=== PATIENT | male | born 1965 | race Caucasian/White ===

== ENCOUNTER 2020-05-07 09:41 | Emergency (ER) | payer BC ==
--- OUTSIDE RECORDS SUMMARY | 2020-05-07 10:13 | XMS ---
:1965 Author Organization [facility] Care Team Providers Name Role Phone Nathan Hernandez MD Unavailable Unavailable Deven Hernandez MD Unavailable Unavailable Deven Hernandez MD Unavailable Unavailable Deven Hernandez MD Unavailable Unavailable Deven Hernandez MD Unavailable Unavailable Deven Hernandez MD Unavailable Unavailable Deven Hernandez MD Unavailable Unavailable Deven Hernandez MD Unavailable Unavailable Deven Hernandez MD Unavailable Unavailable Deven Hernandez MD Unavailable Unavailable Deven Hernandez MD Unavailable Unavailable Deven Hernandez MD Unavailable Unavailable Deven Hernandez MD Unavailable Unavailable Deven Hernandez MD Unavailable Unavailable Deven Hernandez MD Unavailable Unavailable Deven Hernandez MD Unavailable Unavailable Deven Hernandez MD Unavailable Unavailable Deven Hernandez MD Unavailable Unavailable Deven Hernandez MD Unavailable Unavailable Deven Hernandez MD Unavailable Unavailable Deven Hernandez MD Unavailable Unavailable Deven Hernandez MD Unavailable Unavailable Deven Hernandez MD Unavailable Unavailable Deven Hernandez MD Unavailable Unavailable Cash DC MD Unavailable Unavailable Cash DC MD Unavailable Unavailable Cash DC MD Unavailable Unavailable Cash DC MD Unavailable Unavailable Cash DC MD Unavailable Unavailable Cash DC MD Unavailable Unavailable Cash DC MD Unavailable Unavailable Cash DC MD Unavailable Unavailable Cash DC MD Unavailable Unavailable Cash DC MD Unavailable Unavailable Cash DC MD Unavailable Unavailable Cash DC MD Unavailable Unavailable KRUMHOLTZ, S MD Unavailable Unavailable KRUMHOLTZ, S MD Unavailable Unavailable KRUMHOLTZ, S MD Unavailable Unavailable KRUMHOLTZ, S MD Unavailable Unavailable KRUMHOLTZ, S MD Unavailable Unavailable KRUMHOLTZ, S MD Unavailable Unavailable KRUMHOLTZ, S MD Unavailable Unavailable KRUMHOLTZ, S MD Unavailable Unavailable Re-disclosure Warning The records that you are about to access may contain information from federally- assisted alcohol or drug abuse programs. If such information is present, then the following federally mandated warning applies: This information has been disclosed to you from records protected by federal confidentiality rules (42 CFR part 2). The federal rules prohibit you from making any further disclosure of this information unless further disclosure is expressly permitted by the written consent of the person to whom it pertains or as otherwise permitted by 42 CFR part 2. A general authorization for the release of medical or other information is NOT sufficient for this purpose. The Federal rules restrict any use of the information to criminally investigate or prosecute any alcohol or drug abuse patient.The records that you are about to access may contain highly sensitive health information, the redisclosure of which is protected by Article 27-F of the [facility] Public Health law. If you continue you may haveaccess to information: Regarding HIV / AIDS; Provided by facilities licensed or operated by the [facility] Office of Mental Health; or Provided by the [facility] Office for People With Developmental Disabilities. If such information is present, then the following [facility] mandated warning applies: This information has been disclosed to you from confidential records which are protected by state law. State law prohibits you from making any further disclosure of this information without the specific written consent of the person to whom it pertains, or as otherwise permitted by law. Any unauthorized further disclosure in violation of state law may result in a fine or alf sentence or both. A general authorization for the release of medical or other information is NOT sufficient authorization for further disclosure. Allergies and Adverse Reactions Type Description Substance Reaction Status Data Source(s ) Drug allergy Drug allergy Drug allergy MEDENT ( [facility]) Family History Family Member Family Member Family Member Date of Description Data Source(s) Name Gender Status Status Unknown Unknown Problem [facility] Encounters Encounter Providers Location Date Indications Data Source(s ) Outpatient Attender: [facility] 04/01/2020 MEDENT (Elgin Hernandez MD Internal 04:00:00 PM Medical Group of Medicine EDT [facility]) Outpatient Attender: [facility] 03/04/2020 MEDENT (Elgin Hernandez MD Internal 09:15:00 AM Medical Group of Medicine EDT [facility]) Outpatient Attender: [facility] LO-DANICA 01/20/2020 Bruce Hernandez 02:18:14 PM Holland mora MDAdmitter: [facility] David CROWELL 01/20/2020 11:59:00 PM EDT Patient discharged. Outpatient Attender: [facility] 01/12/2020 01:00:00 MEDENT ([facility] David CROWELL Internal Medicine PM EDT [facility]) Outpatient Attender: [facility] 09/11/2019 03:30:00 MEDENT ([facility] David CROWELL Internal Medicine PM EST [facility]) Outpatient Attender: [facility] 12/12/2018 04:15:00 MEDENT ([facility] David CROWELL Internal Medicine PM EDT [facility]) Outpatient Attender: [facility] 03/14/2018 04:30:00 MEDENT ([facility] David CROWELL Internal Medicine PM EDT [facility]) Outpatient Attender: [facility] 08/03/2017 03:00:00 MEDENT ([facility] David CROWELL Internal Medicine PM EST [facility]) Outpatient Attender: [facility] 01/18/2017 03:45:00 MEDENT ([facility] David CROWELL Internal Medicine PM EDT [facility]) Outpatient Attender: [facility] 09/02/2015 03:15:00 MEDENT ([facility] David CROWELL Internal Medicine PM EST [facility]) Outpatient Attender: [facility] 06/04/2014 02:30:00 MEDENT ([facility] David CROWELL Internal Medicine PM EST [facility]) Outpatient Attender: [facility] 04/10/2013 04:15:00 MEDENT ([facility] David CROWELL Internal Medicine PM EDT [facility]) Outpatient Attender: [facility] 11/09/2011 04:15:00 MEDENT ([facility] David CROWELL Internal Medicine PM EDT [facility]) Outpatient Attender: [facility] 09/18/2011 12:30:00 MEDENT ([facility] David CROWELL Internal Medicine PM EST [facility]) Outpatient Attender: [facility] 10/13/2010 04:30:00 MEDENT ([facility] David CROWELL Internal Medicine PM EDT [facility]) Outpatient Attender: [facility] 01/20/2010 04:30:00 MEDENT ([facility] David CROWELL Internal Medicine PM EDT [facility]) Outpatient Attender: [facility] 04/01/2006 03:20:00 MEDENT ([facility] VANDA CROWELL Internal Medicine PM EDT [facility]) Outpatient Attender: [facility] 04/01/2006 03:00:00 MEDENT ([facility] VANDA CROWELL Internal Medicine PM EDT [facility]) Outpatient Attender: [facility] 03/04/2006 09:10:00 MEDENT ([facility] VANDA CROWELL Internal Medicine AM EDT [facility]) Outpatient Attender: [facility] 02/04/2006 09:00:00 MEDENT ([facility] VANDA CROWELL Internal Medicine AM EDT [facility]) Outpatient Attender: [facility] 01/29/2006 01:20:00 MEDENT ([facility] VANDA CROWELL Internal Medicine PM EDT [facility]) Outpatient Attender: [facility] 01/22/2006 03:50:00 MEDENT ([facility] VANDA CROWELL Internal Medicine PM EDT [facility]) Medications Medication Brand Start Product Dose Route Administrative Pharmacy [facility] Indications Reaction Description Data Name Date Form Instructions Instructions Source(s) mesalamine Mesala 04/01/ ORAL active MED ENT 1200 MG mine 2019 ([facility] Delayed 12:00: Medical Release 00 AM Group of Oral Tablet EDT the [facility]) Omeprazole Omepra 03/04/ ORAL active MED ENT 40 MG zole 2019 ([facility] Delayed 12:00: Medical Release 00 AM Group of Oral EDT the [place]) POLYETHYLEN Trilyt 10/04/ complet M EDENT E GLYCOL e 2019 ed ([facility] [id number] 12:00: Medical MG/ML / 00 AM Group of Potassium EST the [place]) 0.48797 MEQ/ML / Sodium Bicarbonate 0.017 MEQ/ML / Sodium Chloride 0.0479 MEQ/ML Oral Solution [TriLyte] Budesonide Entoco 11/23/ ORAL complet ME DENT 3 MG rt Ec 2019 ed ([facility] Delayed 12:00: Medical Release 00 AM Group of Oral EDT the [place]) [Entocort] Budesonide Entoco 01/10/ ORAL complet ME DENT 3 MG rt Ec 2018 ed ([facility] Delayed 12:00: Medical Release 00 AM Group of Oral EDT the [place]) [Entocort] Budesonide Budeso 08/03/ ORAL complet ME DENT 3 MG nide 2018 ed ([facility] Delayed 12:00: Medical Release 00 AM Group of Oral EST the [place]) Budesonide Budeso 05/11/ ORAL complet ME DENT 3 MG nide 2016 ed ([facility] Delayed 12:00: Medical Release 00 AM Group of Oral EDT the [place]) POLYETHYLEN Trilyt 04/30/ complet M EDENT E GLYCOL e 2016 ed ([facility] [id number] 105 12:00: Medical MG/ML / 00 AM Group of Potassium EDT the [place]) 0.74736 MEQ/ML / Sodium Bicarbonate 0.017 MEQ/ML / Sodium Chloride 0.0479 MEQ/ML Oral Solution [TriLyte] Prednisone Predni 04/26/ complet ME DENT 10 MG Oral sone 2016 ed ([facility] Tablet 12:00: Medical 00 AM Group of EDT the [place]) mesalamine Lialda 01/18/ ORAL active MED ENT 1200 MG 2016 ([facility] Delayed 12:00: Medical Release 00 AM Group of Oral Tablet EDT the [place]) mesalamine Lialda 09/02/ ORAL complet ME DENT 1200 MG 2015 ed ([facility] Delayed 12:00: Medical Release 00 AM Group of Oral Tablet EST the [place]) mesalamine Delzic 06/04/ complet ME DENT 400 MG ol 2013 ed ([facility] Delayed 12:00: Medical Release 00 AM Group of Oral EST the [facility]) [Delzicol] mesalamine Asacol 05/26/ ORAL complet ME DENT 800 MG HD 2012 ed ([facility] Delayed 12:00: Medical Release 00 AM Group of Oral Tablet EDT the [facility] on [Asacol] [place]) mesalamine Asacol 12/20/ ORAL complet ME DENT 800 MG HD 2012 ed ([facility] Delayed 12:00: Medical Release 00 AM Group of Oral Tablet EDT the [facility] [Asacol] [place]) mesalamine Delzic 11/17/ complet ME DENT 400 MG ol 2012 ed ([facility] Delayed 12:00: Medical Release 00 AM Group of Oral EDT the [facility]) [Delzicol] mesalamine Asacol 10/13/ complet ME DENT 400 MG 2010 ed ([facility] Delayed 12:00: Medical Release 00 AM Group of Oral Tablet EDT the [facility] [Asacol] [place]) Triple Flex complet MEDEN T ed ([facility]) Vit D complet MEDENT ed ([facility]) Fish Oil complet MEDENT ed ([facility]) Turmeric active MEDENT ([facility]) Vit D complet MEDENT ed ([facility]) Vit B-12 active MEDENT ([facility]) Vit C complet MEDENT ed ([facility]) Esomeprazol Nexium ORAL active MEDE NT e 40 MG ([facility] Delayed Medical Release Group of Oral the [facility]) [Nexium] MTV active MEDENT ([facility]) Vitamin C active MEDENT ([facility]) Cholecalcif Vitami ORAL active MEDE NT hannah 1000 n D ([facility] UNT Oral Medical Tablet Group [facility]) Insurance Providers Payer name Policy type / Policy ID Covered Covered republican's Policy Plan Coverage type republican ID relationship to Lujan Information lujan BC OUT OF [id number] S [id number] [facility] BC/BS Medigap Part [id number] Self [id number] B Ghi Ppo Commercial [id number] Self [id number] [place] Commercial [id number] Self [id number] [employer] [place] BC/BS Medigap Part [id number] Self S [id number] B [place] BC/BS Medigap Part [id number] Self [id number] B Ghi Ppo Commercial [id number] Self [id number] [place] Commercial [id number] Self [id number] [employer] COMM [id number] Self [id number] [place] [employer]/[place] Medigap Part [id number] Self [id number] B Ghi Ppo Commercial [id number] Self [id number] [place] Commercial [id number] Self [id number] [employer] [place] BC/BS Medigap Part [id number] Self [id number] B Ghi Ppo Commercial [id number] Self [id number] [place] Commercial [id number] Self [id number] [employer] [place] BC/BS Medigap Part [id number] Self [id number] B Ghi Ppo Commercial [id number] Self [id number] [place] Commercial [id number] Self [id number] [employer] [place] [employer]/BS Medigap Part [id number] Self [id number] B Ghi Ppo Commercial [id number] Self [id number] [employer] Commercial [id number] Self [id number] [employer] [place] BC/BS Medigap Part [id number] Self [id number] B Ghi Ppo Commercial [id number] Self [id number] [place] [employer] [id number] Self [id number] [employer] [place] BC/BS Medigap Part [id number] Self [id number] B Ghi Ppo Commercial [id number] Self [id number] 66 [employer] [id number] Self [id number] [employer] [place] BC/BS Medigap Part [id number] Self [id number] B Ghi Ppo Commercial [id number] Self [id number] [employer] Commercial [id number] Self [id number] [employer] [place] BC/BS Medigap Part [id number] Self [id number] B Ghi Ppo Commercial [id number] Self [id number] [place] [employer] [id number] Self [id number] [employer] [place] BC/BS Medigap Part [id number] Self [id number] B Ghi Ppo Commercial [id number] Self [id number] [place] [id number] Self [id number] [employer] Problems, Conditions, and Diagnoses Code Display Name Description Problem Type Effective Data Sour ce(s) Dates [id number] Crohn's disease Crohn's disease Problem 03/14/2018 MEDE NT 12:00:00 AM ([facility] EDT [facility]) [id number] Diarrhea Diarrhea Problem 08/03/2017 MEDENT 12:00:00 AM ([facility] EST [facility]) [id number] Crohn's disease of Crohn's disease Problem 11/09/2011 M EDENT small intestine of small 12:00:00 AM ([facility] intestine EDT [facility]) [id number] Crohn's disease of Crohn's disease Problem 09/18/2011 M EDENT large bowel of large bowel 12:00:00 AM ([facility] EST [facility]) Z20.828 Contact with and Contact with and Diagnosis 01/20/2020 [facility] (suspected) (suspected) 02:18:00 PM - Holland exposure to other exposure to other EDT [facility] viral communicable viral [facility] diseases communicable diseases Surgeries/Procedures Procedure Description Date Indications Data Source(s) GI IMAG INTRALUMIN 02/19/2020 MEDENT (P remier ESOPH-ILEUM PHYS INTERP/RPT 12:00:00 AM EDT [facility]) Anesthesia For Upper 01/23/2020 MEDENT ([facility] Gastrointestinal Endoscopic 12:00:00 AM EDT Medical Group of Procedure the [facility]) UPPER NDSC BIOPSY 01/23/2020 MEDENT (Pr emier SINGLE/MULTIPLE 12:00:00 AM EDT Medical G roup of the [facility]) Colonoscopy (procedure) 10/10/2019 MEDE NT ([facility] 12:00:00 AM EDT [facility]) Anesthesia For Lower 10/10/2019 MEDENT ([facility] Intestinal Endoscopic 12:00:00 AM EDT Med ical Group of Procedures the [facility]) COLONOSCOPY W/BIOPSY 10/10/2019 MEDENT ([facility] SINGLE/MULTIPLE 12:00:00 AM EDT Medical G roup of the [facility]) NONINVASIVE EAR/PULSE 09/11/2019 MEDENT ([facility] OXIMETRY SINGLE DETER 12:00:00 AM EST Med ical Group [facility]) Anesthesia For Upper 02/28/2019 MEDENT ([facility] Gastrointestinal Endoscopic 12:00:00 AM EDT Medical Group of Procedure the [facility]) UPPER NDSC BIOPSY 02/28/2019 MEDENT (Pr emier SINGLE/MULTIPLE 12:00:00 AM EDT Medical G roup of the [facility]) NONINVASIVE EAR/PULSE 12/12/2018 MEDENT ([facility] OXIMETRY SINGLE DETER 12:00:00 AM EDT Med ical Group of [facility]) ANES UPPER GI ENDOSCOPY 05/11/2017 MEDE NT ([facility] PROXIMAL TO DUODENUM 12:00:00 AM EDT Medi everette Group of the [facility]) ENDOSCOPY UPPER SMALL 05/11/2017 MEDENT ([facility] INTESTINE W/BIOPSY 12:00:00 AM EDT Medica l Group of [facility]) ANES LOWER INTESTINE 05/04/2017 MEDENT ([facility] ENDOSCOPY DISTAL DUODENUM 12:00:00 AM EDT [facility]) COLONOSCOPY W/BIOPSY 05/04/2017 MEDENT ([facility] SINGLE/MULTIPLE 12:00:00 AM EDT Medical G roup of [facility]) Colonoscopy (procedure) 05/04/2017 MEDE NT ([facility] 12:00:00 AM EDT Medical Grou p [facility]) ANES LOWER INTESTINE 10/15/2015 MEDENT ([facility] ENDOSCOPY DISTAL DUODENUM 12:00:00 AM EDT [facility]) COLONOSCOPY W/BIOPSY 10/15/2015 MEDENT ([facility] SINGLE/MULTIPLE 12:00:00 AM EDT Medical G roup of the [facility]) ANES LOWER INTESTINE 10/24/2013 MEDENT ([facility] ENDOSCOPY DISTAL DUODENUM 12:00:00 AM EDT [facility]) COLONOSCOPY W/BIOPSY 10/24/2013 MEDENT ([facility] SINGLE/MULTIPLE 12:00:00 AM EDT Medical G roup of [facility]) COLONOSCOPY W/BIOPSY 05/26/2010 MEDENT ([facility] SINGLE/MULTIPLE 12:00:00 AM EDT Medical G roup of [facility]) CT PELVIS W/O CONTRAST 04/01/2006 MEDEN T ([facility] MATERIAL 12:00:00 AM EDT Medical Grou p of [facility]) CT ABDOMEN W/O CONTRAST 04/01/2006 MEDE NT ([facility] MATERIAL 12:00:00 AM EDT Medical Grou p [facility]) NJX C/P/A CAVERNOSA 02/04/2006 MEDENT ( [facility] W/PHARMACOLOGIC AGT 12:00:00 AM EDT Medic al Group [facility]) DUP-SCAN ARTL INFL&VISHAL O/F 02/04/2006 M EDENT ([facility] PEN VSL COMPL 12:00:00 AM EDT Medical Matteo up of [facility]) CT PELVIS W/O CONTRAST 01/29/2006 MEDEN T ([facility] MATERIAL 12:00:00 AM EDT Medical Grou p of [facility]) CT ABDOMEN W/O CONTRAST 01/29/2006 MEDE NT ([facility] MATERIAL 12:00:00 AM EDT Medical Grou p [facility]) Results ID Date Data Source [id number] 01/23/2020 12:39:00 PM EDT [facility]) Name Value Range Interpretation Description Data Sup porting Code Source(s) Document(s ) Laboratory Laboratory MEDENT test finding test result ([facility]) [facility]) ID Date Data Source [id number] 01/20/2020 02:21:00 PM EDT [facility] Name Value Range Interpretation Description Data Sup porting Code Source(s) Document(s ) SARS CoV-2 [facility] Interpretation This lab was ordered by Holland Vazquez and reported by [employer] | [employer]. ID Date Data Source [id number] 01/20/2020 02:21:00 PM EDT [facility] Name Value Range Interpretation Code Description Data Marion rce(s) Supporting Document(s ) 2019-nCoV [facility] RNA XXX GENNY+probe- Imp This lab was ordered by [facility] and [facility]. ID Date Data Source [id number] 01/21/2020 02:28:00 PM EDT [facility] Name Value Range Interpretation Code Description Data Marion rce(s) Supporting Document(s ) COVID-19 NA [facility] SARS CoV-2 RNA NEGATIVE (NOT DETECTED)Ne gative results do not preclude SARS-CoV-2 infection and should notbe used as the s ole basis for patient management decisions. Negativeresults must be combined with cl inical observations, patient history,and epidemiological information. Optimum spe cimen types and timingfor peak viral levels during infections caused by SARS-CoV-2 h ave notbeen determined. Collection of multiple specimens or types ofspecimens may be necessary to detect virus. Improper specimencollection and handling, sequenc e variability under primers/probes,or organism present below the limit of dete ction may lead to falsenegative results. Positive and negative predictive values oftesting are highly dependent on prevalence. False negative testresults are more like ly when prevalence is high.The expected result is Negative (Not Detected).The SA RS-CoV-2 test is intended for the qualitative detection ofnucleic acid from SARS-CoV-2 in nasopharyngeal and oropharyngealswab samples from patients who meet COVID-19 clinical and/orepidemiological criteria. For lower respiratory tract specimens,the as say is submitted for authorization by FDA under an EmergencyUse Authorization (EUA ). Testing methodology is Real-Time PCR (RT-PCR)using high-throughput technology . If received as separate collectiondevices, nasopharyngeal and oropharyngeal specime ns are combined foranalysis.Test results must be correlated with clinical presentation andevaluated in the context of other laboratory ad epidemiologic data.This te st has not been Food and Drug Administration (FDA) cleared orapproved and has been au thorized by FDA under an Emergency UseAuthorization (EUA).[facility] is certified under the ClinicalLaboratory Improvement Amendment s of 1988 (CLIA), 42 U.S.C. [id number], to perform high complexity tests.Performing Lab : [address] [id number] Directo r:Dr. Ed Byrd Lab IA Number:[id number] ID Date Data Source [id number] 10/10/2019 07:53:00 AM EDT [facility] ([facility]) Name Value Range Interpretation Description Data Sup porting Code Source(s) Document(s ) Laboratory Laboratory MEDENT test finding test result ([facility]) ID Date Data Source [id number] 02/28/2019 08:26:00 AM EDT MED[facility] ([facility]) Name Value Range Interpretation Description Data Sup porting Code Source(s) Document(s ) Laboratory Laboratory MEDENT test finding test result ([facility]) ID Date Data Source [id number] 05/13/2017 03:10:00 PM EDT [facility] ([facility]) Name Value Range Interpretation Description Data Sup porting Code Source(s) Document(s ) Clostridium Laboratory Normal (applies MEDENT difficile test result to non-numeric ([facility] toxin A+B results) Medical [Presence] in Group of Stool by the [facility]) SRC:ST SRC:ST Hemoglobin.gastrointestinal Laboratory test Abnormal (applie s MEDENT [Presence] in Stool by result to non-numeric (P remier Immunologic method results) [facility]) SRC:ST SRC:ST Calprotectin [Mass/mass] 59 ug/g 0-120 Normal (applies to MEDENT ([facility] in Stool non-numeric results) Medical [facility]) SRC:ST SRC:ST ID Date Data Source [id number] 05/13/2017 03:10:00 PM EDT [facility] ([facility]) Name Value Range Interpretation Description Data Sup porting Code Source(s) Document(s ) Salmonella Laboratory Normal (applies MEDENT sp/Shigella test result to non-numeric (Premier sp identified results) Medical in Stool by Group of Organism the [facility]) culture SRC:ST SRC:ST Campylobacter sp Laboratory test Normal (applies to MEDENT (Premier identified in Stool by result non-numeric results) Medical Group of Organism specific the [facility]) SRC:ST SRC:ST Escherichia coli Laboratory test Normal (applies to MEDENT (Premier shiga-like [Presence] result non-numeric results) Medical Group of in Stool by the [facility]) SRC:ST SRC:ST Bacteria identified Laboratory test Normal (applies to MEDENT (Premier in Unspecified result non-numeric results) [facility] [place] Group of specimen by Culture the [facility]) SRC:ST SRC:ST Bacteria identified Laboratory test Normal (applies to MEDENT (Premier in Unspecified result non-numeric results) [facility] Group of specimen by Culture [facility]) SRC:ST SRC:ST ID Date Data Source [id number] 05/11/2017 08:23:00 AM EDT MEDENT (Premi er Medical Group of [facility]) Name Value Range Interpretation Description Data Sup porting Code Source(s) Document(s ) Laboratory Laboratory Normal (applies MEDENT test finding test result to non-numeric (Premier (navigational results) Medical concept) Group of the [facility]) ID Date Data Source [id number] 05/11/2017 03:00:00 AM EDT [facility]) Name Value Range Interpretation Description Data Sup porting Code Source(s) Document(s ) Leukocytes Laboratory Abnormal (applies MEDENT [Presence] in test result to non-numeric (Premier Stool by results) Medical Light Group of microscopy [facility]) Source of Specimen: ST CD- [id number] Leukocytes Laboratory test Abnormal (applies to ME DENT (Premier [Presence] in Stool result non-numeric results) Medical Group of by Light microscopy [facility]) Source of Specimen: ST CD- [id number] Moderate amount of white blood cells. ID Date Data Source [id number] 05/11/2017 03:00:00 AM EDT MEDENT (Premi er [facility]) Name Value Range Interpretation Description Data Sup porting Code Source(s) Document(s ) Calprotectin 80 ug/g 0-120 Normal (applies MEDENT [Mass/mass] in to non-numeric (Premier Stool results) Medical Group of [facility]) <content>Concentration Interpretatio n Follow-Up</content>
<content><16 - 50 ug/g Normal None</content>
<content>>50 -120 ug/g Borderline Re-evaluate in 4-6 weeks</content>
<content>>120 ug/g Abnormal Repeat as clinically</content>
<content>indica rachid</content>
<content></content> ID Date Data Source [id number] 05/11/2017 03:00:00 AM EDT [facility]) Name Value Range Interpretation Description Data Sup porting Code Source(s) Document(s ) Salmonella Laboratory Normal (applies MEDENT sp/Shigella test result to non-numeric (Premier sp identified results) Medical in Stool by Group of Organism the [facility]) culture Source of Specimen: ST CD- [id number] Escherichia coli Laboratory test Normal (applies to MEDENT (Premier shiga-like [Presence] result non-numeric results) Medical Group of in Stool by the [facility]) Source of Specimen: ST CD- [id number] 24 Campylobacter sp Laboratory test Normal (applies to MEDENT (Premier identified in Stool by result non-numeric results) Medical Group of Organism specific the [facility]) Source of Specimen: ST CD- [id number] 24 Bacteria identified Laboratory test Normal (applies to MEDENT (Premier in Unspecified result non-numeric results) [facility] Group of specimen by Culture [facility]) Source of Specimen: ST CD- [id number] No Campylobacter species isolated. Bacteria identified Laboratory test Normal (applies to MEDENT (Premier in Unspecified result non-numeric results) [facility] Group of specimen by Culture the [facility]) Source of Specimen: ST CD- [id number] No Salmonella or Shigella recovered. ID Date Data Source [id number] 05/04/2017 11:13:00 AM EDT [facility]) Name Value Range Interpretation Description Data Sup porting Code Source(s) Document(s ) Endomysium IgA Ab Laboratory Normal (applies MEDEN T [Presence] in test result to non-numeric (Premier Serum results) Medical Group of [facility]) Laboratory test 350 mg/dL 90-386 Normal (applies MEDENT finding to non-numeric (Premier (navigational results) Medical concept) Group of [facility]) Tissue 2 U/mL 0-3 Normal (applies MEDENT transglutaminase to non-numeric (Premier IgA Ab results) Medical [Units/volume] in Group of Serum [facility]) Negative 0 - 3 Weak Positive 4 - 10 Positive >10 Tissue Transglutaminase (tTG) has been i dentified as the endomysial antigen. Studies have demonstr- ated that endomysial IgA antibodies have over 99% specificity for gluten sensitive enterop athy. ID Date Data Source [id number] 05/04/2017 11:13:00 AM EDT MEDENT ([facility]i er [facility]) Name Value Range Interpretation Description Data Sup porting Code Source(s) Document(s ) Leukocytes 5.2 x10E3/uL 3.4-10. Normal (applies MEDENT [#/volume] in 8 to non-numeric (Premier Blood by results) Medical Automated count Group of [facility]) Erythrocytes 4.71 4.14-5. Normal (applies MEDENT [#/volume] in x10E6/uL 80 to non-numeric (Premier Blood by results) Medical Automated count Group of [facility]) Hematocrit 41.3 % 37.5-51 Normal (applies MEDENT [Volume .0 to non-numeric (Premier Fraction] of results) Medical Blood by Group of Automated count [facility]) Hemoglobin 14.0 g/dL 12.6-17 Normal (applies MEDENT [Mass/volume] .7 to non-numeric (Premier in Blood results) Medical Group of the [facility]) Erythrocyte 88 fL 79-97 Normal (applies MEDENT mean to non-numeric (Premier corpuscular results) Medical volume [Entitic Group of volume] by the [place] Automated count [place]) Erythrocyte 14.2 % 12.3-15 Normal (applies MEDENT distribution .4 to non-numeric (Premier width [Ratio] results) Medical by Automated Group of count [facility]) Erythrocyte 33.9 g/dL 31.5-35 Normal (applies MEDENT mean .7 to non-numeric (Premier corpuscular results) Medical hemoglobin Group of concentration [facility] [Mass/volume] [place]) by Automated count Erythrocyte 29.7 pg 26.6-33 Normal (applies MEDENT mean .0 to non-numeric (Premier corpuscular results) Medical hemoglobin Group of [Entitic mass] [facility] by Automated [place]) count Monocytes/100 10 % Normal (applies MEDENT leukocytes in to non-numeric (Premier Blood by results) Medical Automated count Group [facility]) Neutrophils/100 49 % Normal (applies MEDENT leukocytes in to non-numeric (Premier Blood by results) Medical Automated count Group [facility]) Platelets 271 x10E3/uL 150-379 Normal (applies MEDENT [#/volume] in to non-numeric (Premier Blood by results) Medical Automated count Group [facility]) Lymphocytes/100 38 % Normal (applies MEDENT leukocytes in to non-numeric (Premier Blood by results) Medical Automated count Group [facility]) Basophils/100 0 % Normal (applies MEDENT leukocytes in to non-numeric (Premier Blood by results) Medical Automated count Group [facility]) Neutrophils 2.6 x10E3/uL 1.4-7.0 Normal (applies MEDENT [#/volume] in to non-numeric (Premier Blood by results) Medical Automated count Group [facility]) Immature cells Laboratory Normal (applies MEDENT [#/volume] in test result to non-numeric (Premier Blood results) Medical Group [facility]) Eosinophils/100 3 % Normal (applies MEDENT leukocytes in to non-numeric (Premier Blood by results) Medical Automated count Group [facility]) Eosinophils 0.1 x10E3/uL 0.0-0.4 Normal (applies MEDENT [#/volume] in to non-numeric (Premier Blood by results) Medical Automated count Group [facility]) Lymphocytes 2.0 x10E3/uL 0.7-3.1 Normal (applies MEDENT [#/volume] in to non-numeric (Premier Blood results) Medical Group [facility]) Monocytes 0.5 x10E3/uL 0.1-0.9 Normal (applies MEDENT [#/volume] in to non-numeric (Premier Blood results) Medical Group [facility]) Immature 0.0 x10E3/uL 0.0-0.1 Normal (applies MEDENT granulocytes to non-numeric (Premier [#/volume] in results) Medical Blood by Group of Automated count [facility]) Basophils 0.0 x10E3/uL 0.0-0.2 Normal (applies MEDENT [#/volume] in to non-numeric (Premier Blood by results) Medical Automated count Group [facility]) Immature 0 % Normal (applies MEDENT granulocytes/10 to non-numeric (Premier 0 leukocytes in results) Medical Blood by Group of Automated count [facility]) Nucleated Laboratory Normal (applies MEDENT erythrocytes/10 test result to non-numeric (Premie r 0 leukocytes results) Medical [Ratio] in Group of Blood by the [place] [facility] [place]) Morphology Laboratory Normal (applies MEDENT [Interpretation test result to non-numeric (Premie r ] in Blood results) Medical Narrative Group [facility]) ID Date Data Source [id number] 05/04/2017 11:13:00 AM EDT MEDENT (Premi er Medical Group [facility]) Name Value Range Interpretation Description Data Sup porting Code Source(s) Document(s ) Glucose 108 65-99 Above high MEDENT [Mass/volume] in mg/dL normal (Premier Serum or Plasma Medical Group [facility]) Creatinine 0.94 0.76-1. Normal (applies MEDENT [Mass/volume] in mg/dL 27 to non-numeric (Premier Serum or Plasma results) Medical Group [facility]) Urea nitrogen 10 6-24 Normal (applies MEDENT [Mass/volume] in mg/dL to non-numeric (Premier Serum or Plasma results) Medical Group [facility]) eGFR If Africn Am 110 Normal (applies MEDENT mL/min/ to non-numeric (Premier 1.73 results) Medical Group [facility]) eGFR If NonAfricn 95 Normal (applies MEDENT Am mL/min/ to non-numeric (Premier 1.73 results) Medical Group [facility]) Potassium 4.0 3.5-5.2 Normal (applies MEDENT [Moles/volume] in mmol/L to non-numeric (Premie r Serum or Plasma results) Medical Group [facility]) Sodium 141 134-144 Normal (applies MEDENT [Moles/volume] in mmol/L to non-numeric (Premie r Serum or Plasma results) Medical Group of [facility]) Urea 11 9-20 Normal (applies MEDENT nitrogen/Creatinine to non-numeric (Nba ier [Mass Ratio] in results) Medical Serum or Plasma Group of [facility]) Chloride 102 96-106 Normal (applies MEDENT [Moles/volume] in mmol/L to non-numeric (Premie r Serum or Plasma results) Medical Group of [facility]) Carbon dioxide, 26 18-29 Normal (applies MEDENT total mmol/L to non-numeric (Premier [Moles/volume] in results) Medical Serum or Plasma Group of the [facility]) Protein 6.8 6.0-8.5 Normal (applies MEDENT [Mass/volume] in g/dL to non-numeric (Premier Serum or Plasma results) Medical Group of [facility]) Calcium 9.2 8.7-10. Normal (applies MEDENT [Mass/volume] in mg/dL 2 to non-numeric (Premier Serum or Plasma results) Medical Group of [facility]) Albumin/Globulin 1.3 1.2-2.2 Normal (applies MEDENT [Mass Ratio] in to non-numeric (Premier Serum or Plasma results) Medical Group of [facility]) Globulin 2.9 1.5-4.5 Normal (applies MEDENT [Mass/volume] in g/dL to non-numeric (Premier Serum by results) Medical calculation Group of [facility]) Albumin 3.9 3.5-5.5 Normal (applies MEDENT [Mass/volume] in g/dL to non-numeric (Premier Serum or Plasma results) Medical Group of [facility]) Alkaline 75 IU/L 39-117 Normal (applies MEDENT phosphatase to non-numeric (Premier [Enzymatic results) Medical activity/volume] in Group of Serum or Plasma [facility]) Aspartate 19 IU/L 0-40 Normal (applies MEDENT aminotransferase to non-numeric (Premier [Enzymatic results) Medical activity/volume] in Group of Serum or Plasma [facility]) Alanine 26 IU/L 0-44 Normal (applies MEDENT aminotransferase to non-numeric (Premier [Enzymatic results) Medical activity/volume] in Group of Serum or Plasma [facility]) Bilirubin.total 0.5 0.0-1.2 Normal (applies MEDENT [Mass/volume] in mg/dL to non-numeric (Premier Serum or Plasma results) Medical Group [facility]) ID Date Data Source [id number] 05/04/2017 11:13:00 AM EDT MEDENT (Premi er Medical Group [facility]) Name Value Range Interpretation Description Data Sup porting Code Source(s) Document(s ) Erythrocyte 2 mm/hr 0-15 Normal (applies MEDENT sedimentation to non-numeric (Premier rate by results) Medical [place] Group of method the [facility]) C reactive Laboratory 0.0-4.9 Normal (applies MEDENT protein test result to non-numeric (Premier [Mass/volume] results) Medical in Serum or Group of Plasma [facility]) ID Date Data Source [id number] 05/04/2017 09:05:00 AM EDT MEDENT (Premi er [facility] Group [facility]) Name Value Range Interpretation Description Data Sup porting Code Source(s) Document(s ) Albumin Laboratory Normal (applies MEDENT [Mass/volume] in test result to non-numeric (Premi er Serum or Plasma results) Medical Group [facility]) Carbon dioxide, Laboratory Normal (applies MEDENT total test result to non-numeric (Premier [Moles/volume] in results) Medical Serum or Plasma Group [facility]) Aspartate Laboratory Normal (applies MEDENT aminotransferase test result to non-numeric (Premi er [Enzymatic results) Medical activity/volume] Group of in Serum or Plasma [facility]) Calcium Laboratory Normal (applies MEDENT [Mass/volume] in test result to non-numeric (Premi er Serum or Plasma results) Medical Group [facility]) Alanine Laboratory Normal (applies MEDENT aminotransferase test result to non-numeric (Premi er [Enzymatic results) Medical activity/volume] Group of in Serum or Plasma [facility]) Chloride Laboratory Normal (applies MEDENT [Moles/volume] in test result to non-numeric (Nba ier Serum or Plasma results) Medical Group [facility]) Creatinine Laboratory Normal (applies MEDENT [Mass/volume] in test result to non-numeric (Premi er Serum or Plasma results) Medical Group [facility]) Glucose Laboratory Normal (applies MEDENT [Mass/volume] in test result to non-numeric (Premi er Serum or Plasma results) Medical Group of the [facility]) Laboratory test Laboratory Normal (applies MEDENT finding test result to non-numeric (Premier (navigational results) Medical concept) Group of the [facility]) Protein Laboratory Normal (applies MEDENT [Mass/volume] in test result to non-numeric (Premi er Serum or Plasma results) Medical Group of [facility]) Potassium Laboratory Normal (applies MEDENT [Moles/volume] in test result to non-numeric (Nba ier Serum or Plasma results) Medical Group of [facility]) Sodium Laboratory Normal (applies MEDENT [Moles/volume] in test result to non-numeric (Nba ier Serum or Plasma results) Medical Group of [facility]) Laboratory test Laboratory Normal (applies MEDENT finding test result to non-numeric (Premier (navigational results) Medical concept) Group of [facility]) Laboratory test Laboratory Normal (applies MEDENT finding test result to non-numeric (Premier (navigational results) Medical concept) Group of the [facility]) ID Date Data Source [id number] 05/04/2017 09:05:00 AM EDT MEDENT (Premi er Medical Group [facility]) Name Value Range Interpretation Description Data Sup porting Code Source(s) Document(s ) C reactive Laboratory Normal (applies MEDENT protein test result to non-numeric (Premier [Mass/volum results) Medical e] in Serum Group of the or Plasma [facility]) ID Date Data Source [id number] 05/04/2017 09:05:00 AM EDT MEDENT (Premi er Medical Group [facility]) Name Value Range Interpretation Description Data Sup porting Code Source(s) Document(s ) Erythrocyte Laboratory Normal (applies MEDENT mean test result to non-numeric (Premier corpuscular results) Medical volume [Entitic Group of volume] by the [place] Autom[facility] [place]) Hematocrit Laboratory Normal (applies MEDENT [Volume test result to non-numeric (Premier Fraction] of results) Medical Blood by Group of Automated count [facility]) Erythrocyte Laboratory Normal (applies MEDENT mean test result to non-numeric (Premier corpuscular results) Medical hemoglobin Group of [Entitic mass] the [place] by Automated [place]) count Hemoglobin Laboratory Normal (applies MEDENT [Mass/volume] test result to non-numeric (Premier in Blood results) Medical Group of [facility]) Platelets Laboratory Normal (applies MEDENT [#/volume] in test result to non-numeric (Premier Blood by results) Medical Automated count Group [facility]) Erythrocyte Laboratory Normal (applies MEDENT distribution test result to non-numeric (Premier width [Ratio] results) Medical by Automated Group of count [facility]) Erythrocyte Laboratory Normal (applies MEDENT mean test result to non-numeric (Premier corpuscular results) Medical hemoglobin Group of concentration [facility] [Mass/volume] [place]) by Automated count Platelet mean Laboratory Normal (applies MEDENT volume [Entitic test result to non-numeric (Premie r volume] in results) Medical Blood by Group of [place] [facility]) Band form Laboratory Normal (applies MEDENT neutrophils/100 test result to non-numeric (Premie r leukocytes in results) Medical Body fluid by Group of Manual count [facility]) Lymphocytes/100 Laboratory Normal (applies MEDENT leukocytes in test result to non-numeric (Premier Body fluid by results) Medical Manual count Group [facility]) Laboratory test Laboratory Normal (applies MEDENT finding test result to non-numeric (Premier (navigational results) Medical concept) Group of [facility]) Basophils/100 Laboratory Normal (applies MEDENT leukocytes in test result to non-numeric (Premier Blood results) Medical Group [facility]) Eosinophils/100 Laboratory Normal (applies MEDENT leukocytes in test result to non-numeric (Premier Body fluid by results) Medical Manual count Group [facility]) Laboratory test Laboratory Normal (applies MEDENT finding test result to non-numeric (Premier (navigational results) Medical concept) Group of [facility]) Monocytes Laboratory Normal (applies MEDENT [#/volume] in test result to non-numeric (Premier Blood results) Medical Group of [facility]) Lymphocytes Laboratory Normal (applies MEDENT [#/volume] in test result to non-numeric (Premier Blood results) Medical Group of [facility]) Basophils Laboratory Normal (applies MEDENT [#/volume] in test result to non-numeric (Premier Blood by results) Medical Automated count Group [facility]) Eosinophils Laboratory Normal (applies MEDENT [#/volume] in test result to non-numeric (Premier Blood by results) Medical Automated count Group [facility]) Neutrophils Laboratory Normal (applies MEDENT [#/volume] in test result to non-numeric (Premier Blood by results) Medical Automated count Group [facility]) ID Date Data Source [id number] 05/04/2017 09:05:00 AM EDT MEDENT (Premi er Medical Group [facility]) Name Value Range Interpretation Description Data Sup porting Code Source(s) Document(s ) Erythrocyte Laboratory Normal (applies MEDENT sedimentation test result to non-numeric (Premier rate by results) Medical [place] Group of method [facility]) Laboratory test Laboratory Normal (applies MEDENT finding test result to non-numeric (Premier (navigational results) Medical concept) Group [facility]) ID Date Data Source [id number] 05/04/2017 09:05:00 AM EDT MEDENT (Premi er Medical Group [facility]) Name Value Range Interpretation Description Data Sup porting Code Source(s) Document(s ) Hemoglobi Laboratory Normal (applies to MEDENT n.gastroi test result non-numeric (Premier ntestinal results) Medical [Presence Group of the ] in [facility]) ID Date Data Source [id number] 05/04/2017 09:05:00 AM EDT [facility]) Name Value Range Interpretation Description Data Sup porting Code Source(s) Document(s ) Leukocytes Laboratory Normal (applies MEDENT [#/volume] in test result to non-numeric (Premier Stool by Manual results) Medical count Group [facility]) Calprotectin Laboratory Normal (applies MEDENT [Mass/mass] in test result to non-numeric (Premier Stool results) Medical Group of [facility]) Clostridium Laboratory Normal (applies MEDENT difficile toxin test result to non-numeric (Premie r A+B [Presence] results) Medical in Stool Group [facility]) ID Date Data Source [id number] 05/04/2017 09:05:00 AM EDT MEDENT (Premi er Medical Group [facility]) Name Value Range Interpretation Description Data Sup porting Code Source(s) Document(s ) Bacteria Laboratory Normal (applies MEDENT identified in test result to non-numeric (Premier Stool by results) Medical Culture Group of [facility]) ID Date Data Source [id number] 05/04/2017 08:08:00 AM EDT MEDENT (Premi er Medical Group [facility]) Name Value Range Interpretation Description Data Sup porting Code Source(s) Document(s ) Laboratory Laboratory Normal (applies MEDENT test finding test result to non-numeric (Premier (navigational results) Medical concept) Group of the [facility]) ID Date Data Source [id number] 01/12/2017 02:01:00 PM EDT MEDENT (Premi er Medical Group [facility]) Name Value Range Interpretation Description Data Sup porting Code Source(s) Document(s ) Laboratory <pending> Normal (applies to MEDENT test finding non-numeric (Premier (navigational results) Medical concept) Group of the [facility]) ID Date Data Source [id number] 01/12/2017 02:01:00 PM EDT [facility]) Name Value Range Interpretation Description Data Sup porting Code Source(s) Document(s ) Hemoglobin <pending Normal (applies MEDENT [Mass/volume] in > to non-numeric ([facility] Blood results) Medical Group of [facility]) Hematocrit <pending Normal (applies MEDENT [Volume > to non-numeric ([facility] Fraction] of results) Medical Blood by Group of the Automated count [facility]) Erythrocyte mean <pending Normal (applies MEDENT corpuscular > to non-numeric ([facility] hemoglobin results) Medical [Entitic mass] Group of the by Automated [place] [facility] [place]) Erythrocyte mean <pending Normal (applies MEDENT corpuscular > to non-numeric ([facility] volume [Entitic results) Medical volume] by Group of the Automated count [facility]) Erythrocyte mean <pending Normal (applies MEDENT corpuscular > to non-numeric ([facility] hemoglobin results) Medical concentration Group of the [Mass/volume] by [place] [facility] count [place]) Erythrocyte <pending Normal (applies MEDENT distribution > to non-numeric ([facility] width [Ratio] by results) Medical Automated count Group of [facility]) Platelets <pending Normal (applies MEDENT [#/volume] in > to non-numeric ([facility] Blood by results) Medical Automated count Group of [facility]) Laboratory test <pending Normal (applies MEDENT finding > to non-numeric ([facility] (navigational results) Medical concept) Group of the [facility]) Platelet mean <pending Normal (applies MEDENT volume [Entitic > to non-numeric (Premier volume] in Blood results) Medical by [place] [facility] of [facility]) Laboratory test <pending Normal (applies MEDENT finding > to non-numeric ([facility] (navigational results) Medical concept) Group of the [facility]) Lymphocytes/100 <pending Normal (applies MEDENT leukocytes in > to non-numeric ([facility] Body fluid by results) Medical Manual count Group of [facility]) Band form <pending Normal (applies MEDENT neutrophils/100 > to non-numeric ([facility] leukocytes in results) Medical Body fluid by Group of the Manual count [facility]) Laboratory test <pending Normal (applies MEDENT finding > to non-numeric ([facility] (navigational results) Medical concept) [facility] of the [facility]) Basophils <pending Normal (applies MEDENT [#/volume] in > to non-numeric ([facility] Blood by results) Medical Automated count [facility] of [facility]) Eosinophils/100 <pending Normal (applies MEDENT leukocytes in > to non-numeric ([facility] Body fluid by results) Medical Manual count [facility] of [facility]) Lymphocytes <pending Normal (applies MEDENT [#/volume] in > to non-numeric ([facility] Blood results) Medical [facility]) Eosinophils <pending Normal (applies MEDENT [#/volume] in > to non-numeric ([facility] Blood by results) Medical Automated count [facility] of [facility]) Monocytes <pending Normal (applies MEDENT [#/volume] in > to non-numeric ([facility] Blood results) Medical [facility]) Neutrophils <pending Normal (applies MEDENT [#/volume] in > to non-numeric ([facility] Blood by results) Medical Automated count Group [facility]) ID Date Data Source [id number] 10/15/2015 10:19:00 AM EDT MEDENT (Premi er Medical [facility]) Name Value Range Interpretation Description Data Sup porting Code Source(s) Document(s ) Laboratory Laboratory Normal (applies MEDENT test finding test result to non-numeric ([facility]ier (navigational results) Medical concept) [facility]) ID Date Data Source [id number] 10/24/2013 09:48:00 AM EDT MED[facility] ([facility]) Name Value Range Interpretation Description Data Sup porting Code Source(s) Document(s ) Laboratory Laboratory Normal (applies MEDENT test finding test result to non-numeric ([facility]ier (navigational results) Medical concept) [facility]) ID Date Data Source [id number] 03/11/2013 10:23:00 AM EDT MEDENT (Premi er Medical [facility]) Name Value Range Interpretation Description Data Sup porting Code Source(s) Document(s ) Laboratory 32 ng/mL 30-100 Normal (applies MEDENT test finding to non-numeric ([facility]ier (navigational results) Medical concept) [facility] of [facility]) Laboratory 32 ng/mL Normal (applies MEDENT test finding to non-numeric ([facility]ier (navigational results) Medical concept) [facility] of [facility]) Laboratory Laboratory Normal (applies MEDENT test finding test result to non-numeric ([facility] (navigational results) Medical concept) [facility] of [facility]) <content>25-OHD3 indicates both endogeno us production and</content>
<content>supplementati on. 25-OHD2 is an indicator of exogenous</content>
<content>sources such as diet or supplementation. Therapy is based on</content>
<content>measurem ent of Total 25-OHD, with levels <20 ng/mL indicative</content>
<content>of Vit chin D deficiency, while levels between 20 ng/mL and</content>
<content>30 ng/m L suggest insufficiency. Optimal levels are</content>
<content>> or = 30 ng/ mL.</content>
<content></content> ID Date Data Source [id number] 03/11/2013 10:23:00 AM EDT MEDENT ([facility]) Name Value Range Interpretation Description Data Sup porting Code Source(s) Document(s ) Laboratory 4.6 g/dL 3.6-5.1 Normal (applies MEDENT test finding to non-numeric (Premier (navigational results) Medical concept) [facility] of [facility]) Laboratory 7.5 g/dL 6.1-8.1 Normal (applies MEDENT test finding to non-numeric (Premier (navigational results) Medical concept) [facility] of [facility]) Laboratory 1.6 1.0-2.5 Normal (applies MEDENT test finding to non-numeric (Premier (navigational results) Medical concept) [facility] of [facility]) Laboratory 2.9 g/dL 1.9-3.7 Normal (applies MEDENT test finding to non-numeric (Premier (navigational results) Medical concept) [facility] of [facility]) Laboratory 0.9 0.2-1.2 Normal (applies MEDENT test finding mg/dL to non-numeric (Premier (navigational results) Medical concept) [facility] of [facility]) Laboratory 19 U/L 9-46 Normal (applies MEDENT test finding to non-numeric (Premier (navigational results) Medical concept) [facility] of [facility]) Laboratory 0.2 Normal (applies MEDENT test finding mg/dL to non-numeric ([facility]ier (navigational results) Medical concept) [facility] of [facility]) Laboratory 24 U/L 10-40 Normal (applies MEDENT test finding to non-numeric (Premier (navigational results) Medical concept) [facility] of [facility]) Laboratory 73 U/L 40-115 Normal (applies MEDENT test finding to non-numeric (Premier (navigational results) Medical concept) [facility] of [facility]) Laboratory 0.7 0.2-1.2 Normal (applies MEDENT test finding mg/dL to non-numeric (Premier (navigational results) Medical concept) [facility]) ID Date Data Source [id number] 03/11/2013 10:23:00 AM EDT MEDENT (Premi er Medical [facility]) Name Value Range Interpretation Description Data Sup porting Code Source(s) Document(s ) Triglyceride 71 mg/dL Normal (applies MEDENT [Mass/volume] to non-numeric (Premier in Serum or results) Medical Plasma [facility]) Cholesterol 177 125-200 Normal (applies MEDENT [Mass/volume] mg/dL to non-numeric ([facility]ier in Serum or results) Medical Plasma [facility]) ID Date Data Source [id number] 03/11/2013 10:23:00 AM EDT MEDENT (Premi er Medical [facility]) Name Value Range Interpretation Description Data Sup porting Code Source(s) Document(s ) Laboratory 4.93 mill/uL 4.20-5. Normal (applies MEDENT test finding 80 to non-numeric (Premier (navigational results) Medical concept) [facility] the [facility]) Laboratory 3.4 thous/uL 3.8-10. Below low normal MEDENT test finding 8 (Premier (navigational Medical concept) [facility] of the [facility]) Laboratory 14.7 g/dL 13.2-17 Normal (applies MEDENT test finding .1 to non-numeric (Premier (navigational results) Medical concept) [facility] of [facility]) Laboratory 90.8 fL 80.0-10 Normal (applies MEDENT test finding 0.0 to non-numeric (Premier (navigational results) Medical concept) [facility] the [facility]) Laboratory 44.8 % 38.5-50 Normal (applies MEDENT test finding .0 to non-numeric (Premier (navigational results) Medical concept) [facility]) Laboratory 29.7 pg 27.0-33 Normal (applies MEDENT test finding .0 to non-numeric (Premier (navigational results) Medical concept) [facility]) Laboratory 13.6 % 11.0-15 Normal (applies MEDENT test finding .0 to non-numeric (Premier (navigational results) Medical concept) [facility]) Laboratory 8.5 fL 7.5-11. Normal (applies MEDENT test finding 5 to non-numeric (Premier (navigational results) Medical concept) [facility]) Laboratory 231 thous/uL 140-400 Normal (applies MEDENT test finding to non-numeric (Premier (navigational results) Medical concept) [facility]) Laboratory 32.7 g/dL 32.0-36 Normal (applies MEDENT test finding .0 to non-numeric (Premier (navigational results) Medical concept) [facility]) Laboratory 9.1 % 0-13 Normal (applies MEDENT test finding to non-numeric (Premier (navigational results) Medical concept) [facility]) Laboratory 51.0 % 38-80 Normal (applies MEDENT test finding to non-numeric (Premier (navigational results) Medical concept) [facility]) Laboratory 36.4 % 15-49 Normal (applies MEDENT test finding to non-numeric (Premier (navigational results) Medical concept) [facility]) Laboratory 1734 cells/uL 1500-78 Normal (applies MEDENT test finding 00 to non-numeric (Premier (navigational results) Medical concept) [facility]) Laboratory 1238 cells/uL 850-390 Normal (applies MEDENT test finding 0 to non-numeric (Premier (navigational results) Medical concept) [facility]) Laboratory 3.5 % 0-8 Normal (applies MEDENT test finding to non-numeric (Premier (navigational results) Medical concept) [facility]) Laboratory 0.0 % 0-2 Normal (applies MEDENT test finding to non-numeric (Premier (navigational results) Medical concept) [facility]) Laboratory 119 cells/uL 15-500 Normal (applies MEDENT test finding to non-numeric (Premier (navigational results) Medical concept) [facility]) Laboratory 309 cells/uL 200-950 Normal (applies MEDENT test finding to non-numeric (Premier (navigational results) Medical concept) [facility]) Laboratory 0 cells/uL 0-200 Normal (applies MEDENT test finding to non-numeric (Premier (navigational results) Medical concept) [facility]) Laboratory Laboratory Normal (applies MEDENT test finding test result to non-numeric (Premier (navigational results) Medical concept) Group [facility]) An instrument differential was performed . ID Date Data Source [id number] 08/27/2010 12:06:00 PM EST MEDENT (Premi er Medical [facility]) Name Value Range Interpretation Description Data Sup porting Code Source(s) Document(s ) Laboratory 4.4 thous/uL 3.8-10. Normal (applies MEDENT test finding 8 to non-numeric (Premier (navigational results) Medical concept) [facility]) Laboratory 15.5 g/dL 13.2-17 Normal (applies MEDENT test finding .1 to non-numeric (Premier (navigational results) Medical concept) [facility]) Laboratory 5.01 mill/uL 4.20-5. Normal (applies MEDENT test finding 80 to non-numeric (Premier (navigational results) Medical concept) [facility]) Laboratory 44.1 % 38.5-50 Normal (applies MEDENT test finding .0 to non-numeric (Premier (navigational results) Medical concept) [facility]) Laboratory 30.9 pg 27.0-33 Normal (applies MEDENT test finding .0 to non-numeric (Premier (navigational results) Medical concept) [facility]) Laboratory 88.1 fL 80.0-10 Normal (applies MEDENT test finding 0.0 to non-numeric (Premier (navigational results) Medical concept) [facility]) Laboratory 231 thous/uL 140-400 Normal (applies MEDENT test finding to non-numeric (Premier (navigational results) Medical concept) [facility]) Laboratory 8.7 fL 7.5-11. Normal (applies MEDENT test finding 5 to non-numeric (Premier (navigational results) Medical concept) [facility]) Laboratory 35.1 g/dL 32.0-36 Normal (applies MEDENT test finding .0 to non-numeric (Premier (navigational results) Medical concept) [facility]) Laboratory 13.9 % 11.0-15 Normal (applies MEDENT test finding .0 to non-numeric (Premier (navigational results) Medical concept) [facility]) Laboratory 11.0 % 0-13 Normal (applies MEDENT test finding to non-numeric (Premier (navigational results) Medical concept) [facility]) Laboratory 27.0 % 15-49 Normal (applies MEDENT test finding to non-numeric (Premier (navigational results) Medical concept) [facility]) Laboratory 56.4 % 38-80 Normal (applies MEDENT test finding to non-numeric (Premier (navigational results) Medical concept) [facility]) Laboratory 5.3 % 0-8 Normal (applies MEDENT test finding to non-numeric (Premier (navigational results) Medical concept) [facility]) Laboratory 1188 cells/uL 850-390 Normal (applies MEDENT test finding 0 to non-numeric (Premier (navigational results) Medical concept) [facility]) Laboratory 0.3 % 0-2 Normal (applies MEDENT test finding to non-numeric (Premier (navigational results) Medical concept) [facility]) Laboratory 2482 cells/uL 1500-78 Normal (applies MEDENT test finding 00 to non-numeric (Premier (navigational results) Medical concept) [facility]) Laboratory 233 cells/uL 15-550 Normal (applies MEDENT test finding to non-numeric (Premier (navigational results) Medical concept) [facility]) Laboratory 13 cells/uL 0-200 Normal (applies MEDENT test finding to non-numeric (Premier (navigational results) Medical concept) [facility]) Laboratory 484 cells/uL 200-950 Normal (applies MEDENT test finding to non-numeric (Premier (navigational results) Medical concept) [facility]) Laboratory Laboratory Normal (applies MEDENT test finding test result to non-numeric (Premier (navigational results) Medical concept) [facility]) An instrument differential was performed . ID Date Data Source [id number] 08/27/2010 12:06:00 PM EST MEDENT (Premi er [facility]) Name Value Range Interpretation Description Data Sup porting Code Source(s) Document(s ) Laboratory 7.2 g/dL 6.2-8.3 Normal (applies MEDENT test finding to non-numeric (Premier (navigational results) Medical concept) [facility]) Laboratory 4.3 g/dL 3.6-5.1 Normal (applies MEDENT test finding to non-numeric (Premier (navigational results) Medical concept) [facility]) Laboratory 0.1 Normal (applies MEDENT test finding mg/dL to non-numeric (Premier (navigational results) Medical concept) [facility]) Laboratory 2.9 g/dL 2.1-3.7 Normal (applies MEDENT test finding to non-numeric (Premier (navigational results) Medical concept) Group [facility]) Laboratory 1.5 1.0-2.1 Normal (applies MEDENT test finding to non-numeric (Premier (navigational results) Medical concept) [facility]) Laboratory 0.4 0.2-1.2 Normal (applies MEDENT test finding mg/dL to non-numeric (Premier (navigational results) Medical concept) [facility]) Laboratory 20 U/L 10-40 Normal (applies MEDENT test finding to non-numeric (Premier (navigational results) Medical concept) Group [facility]) Laboratory 21 U/L 9-60 Normal (applies MEDENT test finding to non-numeric (Premier (navigational results) Medical concept) [facility]) Laboratory 82 U/L 40-115 Normal (applies MEDENT test finding to non-numeric (Premier (navigational results) Medical concept) [facility]) Laboratory 0.3 0.2-1.2 Normal (applies MEDENT test finding mg/dL to non-numeric (Premier (navigational results) Medical concept) Group [facility]) Procedure Social History Code Duration Value Status Description Data Source(s) Recreational Drug 01/12/2020 Never Used Drugs completed Never Used D rugs MEDENT [facility] 12:00:00 [facility]) ETOH Use 01/12/2020 Drinks Alcoholic completed Drinks Alcoholic ME DENT 12:00:00 AM Beverages Beverages ([facility] EDT Occasionally [facility] Smoking 01/12/2020 Never Smoked completed Never Smoked MEDENT 12:00:00 AM Cigarettes Cigarettes ([facility]) 09/11/2019 Never Smoked completed Never Smoked MEDENT 12:00:00 AM Cigarettes Cigarettes ([facility] EST [facility]) Vital Signs ID Date Data Source UNK Name Value Range Interpretation Code Description Data Source(s) Body mass index 27.3 kg/m2 27.3 kg/m2 MEDENT (P remier (BMI) [Ratio] Medical Matteo up [facility]) Body temperature 97.9 [degF] 97.9 [degF] MEDENT ([facility]) Diastolic blood 76 mm[Hg] 76 mm[Hg] MEDENT (P remier pressure Medical Group [facility]) Systolic blood 118 mm[Hg] 118 mm[Hg] MEDENT (Pr emier pressure Medical [facility]) Body height 70 [in_i] 70 [in_i] MEDENT ([facility]) 5'10" Body weight 190.00 [lb_av] 190.00 [lb_av] MEDEN T ([facility]) Body mass index (BMI) 27.3 kg/m2 27.3 kg/m2 MED ENT ([facility] [Ratio] Group of the [facility]) Body height 70 [in_i] 70 [in_i] MEDENT ([facility]) 5'10" Body weight 190.00 [lb_av] 190.00 [lb_av] MEDEN T ([facility]) Body mass index (BMI) 27.0 kg/m2 27.0 kg/m2 MED ENT ([facility] [Ratio] [facility]) Diastolic blood pressure 68 mm[Hg] 68 mm[Hg] MEDENT ([facility]) Systolic blood pressure 123 mm[Hg] 123 mm[Hg] M EDENT ([facility]) Body height 70 [in_i] 70 [in_i] MEDENT ([facility]) 5'10" Body weight 188.00 [lb_av] 188.00 [lb_av] MEDEN T ([facility]) Body mass index (BMI) 27.3 kg/m2 27.3 kg/m2 MED ENT ([facility] [Ratio] [facility]) Diastolic blood pressure 74 mm[Hg] 74 mm[Hg] MEDENT ([facility]) Systolic blood pressure 124 mm[Hg] 124 mm[Hg] M EDENT ([facility]) Body height 70 [in_i] 70 [in_i] MEDENT ([facility]) 5'10" Body weight 190.00 [lb_av] 190.00 [lb_av] MEDEN T ([facility]) Body mass index (BMI) 27.3 kg/m2 27.3 kg/m2 MED ENT ([facility] [Ratio] [facility]) Body mass index (BMI) 27.4 kg/m2 27.4 kg/m2 MED ENT ([facility] [Ratio] Group [facility]) Diastolic blood pressure 76 mm[Hg] 76 mm[Hg] [facility]) Systolic blood pressure 118 mm[Hg] 118 mm[Hg] M EDENT ([facility]) Body height 70 [in_i] 70 [in_i] MEDENT ([facility]) 5'10" Body weight 191.00 [lb_av] 191.00 [lb_av] MEDEN T [facility]) Body mass index (BMI) 27.4 kg/m2 27.4 kg/m2 MED ENT ([facility] [Ratio] [facility]) Body mass index (BMI) 27.7 kg/m2 27.7 kg/m2 MED ENT ([facility] [Ratio] Group [facility] the [facility]) Diastolic blood pressure 68 mm[Hg] 68 mm[Hg] MEDENT [facility]) Systolic blood pressure 114 mm[Hg] 114 mm[Hg] M EDENT ([facility]) Body height 70 [in_i] 70 [in_i] MEDENT (Premi er [facility]) 5'10" Body weight 193.00 [lb_av] 193.00 [lb_av] MEDEN T ([facility]) Body mass index (BMI) 27.7 kg/m2 27.7 kg/m2 MED ENT ([facility] [Ratio] [facility]) Body mass index (BMI) 28.0 kg/m2 28.0 kg/m2 MED ENT ([facility] [Ratio] Group [facility]) Diastolic blood pressure 80 mm[Hg] 80 mm[Hg] MEDENT ([facility]) Systolic blood pressure 122 mm[Hg] 122 mm[Hg] M EDENT ([facility]) Body height 70 [in_i] 70 [in_i] MEDENT ([facility]) 5'10" Body weight 195.00 [lb_av] 195.00 [lb_av] MEDEN T [facility]) Body mass index (BMI) 28.0 kg/m2 28.0 kg/m2 MED ENT ([facility] [Ratio] [facility] the [facility]) Body mass index (BMI) 29.0 kg/m2 29.0 kg/m2 MED E[facility] ([facility]) Diastolic blood pressure 80 mm[Hg] 80 mm[Hg] [facility] Systolic blood pressure 116 mm[Hg] 116 mm[Hg] M EDENT ([facility] Body height 70 [in_i] 70 [in_i] [facility] ([facility]) 5'10" Body weight 202.00 [lb_av] 202.00 [lb_av] MEDEN T ([facility]) Body mass index (BMI) 29.0 kg/m2 29.0 kg/m2 MED E[facility] ([facility]) Body mass index (BMI) 28.1 kg/m2 28.1 kg/m2 MED E[facility] ([facility]) Diastolic blood pressure 80 mm[Hg] 80 mm[Hg] MEDENT ([facility]) Systolic blood pressure 120 mm[Hg] 120 mm[Hg] M ED[facility] ([facility] Body height 70 [in_i] 70 [in_i] [facility] ([facility]) 5'10" Body weight 196.00 [lb_av] 196.00 [lb_av] MEDEN T ([facility] Body mass index (BMI) 28.1 kg/m2 28.1 kg/m2 MED E[facility] ([facility]) Body mass index (BMI) 26.5 kg/m2 26.5 kg/m2 MED E[facility] ([facility]) Diastolic blood pressure 76 mm[Hg] 76 mm[Hg] MEDENT ([facility]) Systolic blood pressure 112 mm[Hg] 112 mm[Hg] M EDENT [facility] Body height 70 [in_i] 70 [in_i] [facility] ([facility] 5'10" Body weight 185.00 [lb_av] 185.00 [lb_av] MEDEN T ([facility]) Body mass index (BMI) 26.5 kg/m2 26.5 kg/m2 MED E[facility] ([facility]) Body mass index (BMI) 28.8 kg/m2 28.8 kg/m2 MED E[facility] ([facility]) Diastolic blood pressure 72 mm[Hg] 72 mm[Hg] MEDENT ([facility]) Systolic blood pressure 118 mm[Hg] 118 mm[Hg] M EDENT ([facility]) Body height 70 [in_i] 70 [in_i] MED[facility] ([facility] 5'10" Body weight 201.00 [lb_av] 201.00 [lb_av] MEDEN T ([facility] Body mass index (BMI) 28.8 kg/m2 28.8 kg/m2 MED E[facility] ([facility]) Body mass index (BMI) 28.7 kg/m2 28.7 kg/m2 MED E[facility] ([facility]) Diastolic blood pressure 76 mm[Hg] 76 mm[Hg] MEDENT ([facility]) Systolic blood pressure 114 mm[Hg] 114 mm[Hg] M EDENT ([facility] Body height 70 [in_i] 70 [in_i] MED[facility] ([facility]) 5'10" Body weight 200.00 [lb_av] 200.00 [lb_av] MEDEN T ([facility]) Body mass index (BMI) 28.7 kg/m2 28.7 kg/m2 [facility] ([facility] Body mass index (BMI) 29.0 kg/m2 29.0 kg/m2 MED [facility] ([facility] Diastolic blood pressure 76 mm[Hg] 76 mm[Hg] MEDENT ([facility]) Systolic blood pressure 122 mm[Hg] 122 mm[Hg] M EDENT ([facility]) Body height 70 [in_i] 70 [in_i] [facility] 5'10" Body weight 202.00 [lb_av] 202.00 [lb_av] MEDEN T ([facility] Body mass index (BMI) 29.0 kg/m2 29.0 kg/m2 MED [facility] ([facility])
--- NOTE | 2020-05-07 10:39 | TELE ---
HPI Do you have fever,cough or shortness of breath?: No - General Reason For Visit: VIRTUAL VISIT Past History - Travel History Traveled outside of the country in the last 30 days: No Close contact w/someone who was outside of country & ill: No Review of Systems - Review of Systems Able to Perform ROS?: Yes Comments:: 05/07/20 10:36 CONSTITUTIONAL: Absent: fever, chills, diaphoresis, generalized weakness, malaise, loss of appetite HEENT: Absent: rhinorrhea, nasal congestion, throat pain, throat swelling, difficulty swallowing, mouth swelling, ear pain, eye pain, visual Changes CARDIOVASCULAR: Absent: chest pain, loss of consciousness, palpitations, irregular heart rate, peripheral edema RESPIRATORY: Absent: cough, shortness of breath, dyspnea with exertion, orthopnea, wheezing, stridor, hemoptysis GASTROINTESTINAL: Absent: abdominal pain, abdominal distension, nausea, vomiting, diarrhea, constipation, melena, hematochezia SKIN: Absent: rash, itching, pallor NEUROLOGIC: Absent: headache, focal weakness or paresthesias, dizziness, unsteady gait, seizure, mental status changes, bladder or bowel incontinence PSYCHIATRIC: Absent: anxiety, depression, suicidal or homicidal ideation, hallucinations. Limited Taiwanese proficient: No *Physical Exam - Physical Exam 05/07/20 10:36 GENERAL: Well developed, well nourished. Awake and alert. No acute distress. PULMONARY: No evidence of respiratory distress. NEUROLOGICAL: Alert, awake, appropriate. PSYCHIATRIC: Cooperative. Good eye contact. Appropriate mood and affect. - Medical Decision Making 05/07/20 10:37 Patient is a 54-year-old male past medical history of Crohn's, presents to telehealth urgent care for COVID swab. He states that he had 3 coworkers test positive and he is requesting a swab at this point given exposure. He has no symptoms at this time. He is in his usual state of health. Need for COVID swab Telehealth video chat unable to perform as he was at work at this time. Call was initiated We will send for COVID swab given exposure. Patient for to [facility] Isolation precautions given. Discharge Diagnosis at time of Disposition: Counseled about COVID-19 virus infection - Referrals Follow-up Referral(s): Iman Ramírez MD [Primary Care Provider] - - Patient Instructions
== END 2020-05-07 10:39 | disposition home or self-care (01) ==
LOC: JVIRT 09:41
DX: Z03.818 Encounter for observation for suspected exposure to other biological agents ruled out (principal)
CPT/HCPCS: 99441-95; C9803; U0003

== ENCOUNTER 2020-09-12 16:08 | Emergency (ER) | payer BC | END 2020-09-12 17:51 | disposition home or self-care (01) | LOC: JVIRT 16:08 | DX: Z20.822 Contact with and (suspected) exposure to COVID-19 (principal) | CPT/HCPCS: C9803; G2012-GT; U0003 ==

== ENCOUNTER 2020-09-25 13:07 | Emergency (ER) | payer BC | END 2020-09-25 14:06 | disposition home or self-care (01) | LOC: JVIRT 13:07 | DX: J02.9 Acute pharyngitis, unspecified (principal); Z20.822 Contact with and (suspected) exposure to COVID-19 | CPT/HCPCS: C9803; G2251-GT; U0003 ==

== ENCOUNTER 2020-12-23 20:44 | Emergency (ER) | payer BC ==
[2020-12-23] MEDS ORDERED: IBUPROFEN 600 MG TABLET (FP) PO ONE ×2 (20:55→20:57)
[2020-12-23 21:00] VITALS: BP 152/96; PULSE 71; TEMP 98; BMI 25.9
== END 2020-12-23 22:32 | disposition home or self-care (01) ==
LOC: FER 20:44
DX: N20.0 Calculus of kidney (principal)
CPT/HCPCS: 74176-TC; 81003; 81015; 87086; 99285-25

== ENCOUNTER 2021-02-10 04:42 | Day surgery (SDC) | payer BC ==
[2021-02-07 18:17] VITALS: BMI 26.2
[2021-02-10] MEDS ORDERED: MIDAZOLAM HCL 2 MG/2 ML SINGLE DOSE VIAL ONE ×2 (12:20)
[2021-02-10] MEDS ORDERED: PROPOFOL 20 ML ONE (12:49)
[2021-02-10 14:20] VITALS: BP 132/80; PULSE 68; TEMP 97.3
== END 2021-02-10 14:20 | disposition home or self-care (01) ==
LOC: JASU-SURG 04:42
PROVIDERS: ATTEND Urology
PROC: 0TF4XZZ Fragmentation in Left Kidney Pelvis, External Approach (ICD-10-PCS; principal; 2021-02-10 12:00)
DX: N20.0 Calculus of kidney (principal)

== ENCOUNTER 2022-02-10 04:15 | Day surgery (SDC) | payer BC ==
[2022-02-05 13:14] VITALS: BMI 26.2
[2022-02-10] MEDS ORDERED: MIDAZOLAM HCL 2 MG/2 ML SINGLE DOSE VIAL ONE (12:58)
[2022-02-10] MEDS ORDERED: ONDANSETRON 4 MG/2 ML VIAL IVPUSH PRN (13:36)
[2022-02-10] MEDS ORDERED: ACETAMINOPHEN 325 MG TABLET (FP) PO PRN (13:36)
[2022-02-10] MEDS ORDERED: oxyCODONE HCL 5 MG TABLET PO PRN (13:36)
[2022-02-10] MEDS ORDERED: LACTATED RINGERS SOLUTION 1,000 ML IV SCH (13:45)
[2022-02-10 14:29] VITALS: BP 111/75; PULSE 70; TEMP 98.3
== END 2022-02-10 14:31 | disposition home or self-care (01) ==
LOC: JASU-SURG 04:15
PROVIDERS: ATTEND Urology
PROC: 0TF3XZZ Fragmentation in Right Kidney Pelvis, External Approach (ICD-10-PCS; principal; 2022-02-10 13:00)
DX: N20.0 Calculus of kidney (principal)

== ENCOUNTER 2022-03-23 04:23 | Day surgery (SDC) | payer BC ==
[2022-03-18 17:49] VITALS: BMI 26.2
[2022-03-23] MEDS ORDERED: MIDAZOLAM HCL 2 MG/2 ML SINGLE DOSE VIAL ONE (14:55)
[2022-03-23 16:05] VITALS: BP 120/76; PULSE 64; RESP 19; TEMP 97.8
== END 2022-03-23 16:01 | disposition home or self-care (01) ==
LOC: JASU-SURG 04:23
PROVIDERS: ATTEND Urology
PROC: 0TF4XZZ Fragmentation in Left Kidney Pelvis, External Approach (ICD-10-PCS; principal; 2022-03-23 15:00)
DX: N20.0 Calculus of kidney (principal)